=== PATIENT | male | born 1990 | race Caucasian/White ===

== ENCOUNTER → 2020-12-30 | Outpatient (CLI) | payer BC ==
--- NOTE | 2020-12-30 16:14 | US ---
EXAMINATION TYPE: US scrotum with doppler. No DATE OF EXAM: 12/30/2020 COMPARISON: NONE CLINICAL HISTORY: 30-year-old male N44.00 TORSION OF TESTES. Pt states episode of left testicle tende rness TECHNIQUE: Grayscale and color Doppler Duplex imaging performed of the scrotum. FINDINGS: EXAM MEASUREMENTS: TESTICLES: Right Testicle: 4.4 x 2.3 x 3.2 cm Left Testicle: 3.8 x 1.9 x 3.4 cm EPIDIDYMIS HEAD: Right Epididymis: 1.1 cm Small epi head cyst= 0.6 x 0.4 cm Left Epididymis: 0.9 cm Doppler performed to assess for testicular vascularity; good bilateral color flow and waveforms are s een. There is no evidence of testicular torsion. Presence of hydroceles: No Presence of varicoceles: No A single tiny punctate calc visualized within left testicle of questionable clinical significance IMPRESSION: 1. No sonographic evidence for testicular torsion or epididymoorchitis. 2. No hydrocele or sizable varicocele.
== END | disposition home or self-care (01) ==
LOC: RADUSWWP 13:41
PROVIDERS: ATTEND Family Medicine
DX: N44.00 Torsion of testis, unspecified (principal)
CPT/HCPCS: 76870; 93975

== ENCOUNTER 2024-03-27 09:35 | Emergency (ER) | payer BC, OTHER ==
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
[2024-03-27 12:29] VITALS: BP 128/76; PULSE 72; RESP 18; TEMP 98
== END 2024-03-27 12:30 | disposition home or self-care (01) ==
LOC: EC 09:35
CPT/HCPCS: 70450; 72125; 99284